=== PATIENT | male | born 1960 | race Caucasian/White ===

== ENCOUNTER 2022-10-17 11:48 | Outpatient (CLI) | payer MEDICAID, SELFPAY ==
[2022-10-17 14:16] LABS: Chloride* 106 mmol/L (96-114); Potassium* 5.2 mmol/L (3.6-5.1); Sodium* 138 mmol/L (135-149)
[2022-10-17 14:18] LABS: Cholesterol* 114 mg/dL (90-199)
[2022-10-17 14:19] LABS: Blood Urea Nitrogen* 14 mg/dL (7-30); Carbon Dioxide* 26 mmol/L (20-32); Creatinine* 0.8 mg/dL (0.5-1.5); Estimated Glomerular Filt Rate 101 ml/min; Glucose* 97 mg/dL (60-115)
[2022-10-17 14:20] LABS: Calcium* 9.1 mg/dL (8.4-10.6); HDL Cholesterol* 33 mg/dL (>=40); LDL Cholesterol Calculated 66 mg/dL (<100); Triglycerides* 73 mg/dL (40-149)
== END 2022-10-17 11:49 | disposition home or self-care (01) ==
PROVIDERS: PCP Family Medicine; Visit Provider Family Medicine
DX: Z00.00 Encounter for general adult medical examination without abnormal findings (principal); E78.5 Hyperlipidemia, unspecified; I10 Essential (primary) hypertension; Z12.5 Encounter for screening for malignant neoplasm of prostate
CPT/HCPCS: 80048; 80061; 84153

== ENCOUNTER 2023-10-23 10:16 | Outpatient (CLI) | payer MEDICAID, SELFPAY | END 2023-10-23 10:17 | disposition home or self-care (01) | PROVIDERS: PCP Family Medicine; Visit Provider Family Medicine | DX: E78.2 Mixed hyperlipidemia (principal); I10 Essential (primary) hypertension; Z12.5 Encounter for screening for malignant neoplasm of prostate; Z79.899 Other long term (current) drug therapy | CPT/HCPCS: 80048; 80061; 84153; 84460 ==

== ENCOUNTER 2024-10-24 14:18 | Outpatient (CLI) | payer MEDICAID, SELFPAY | END 2024-10-24 14:19 | disposition home or self-care (01) | PROVIDERS: PCP Family Medicine; Visit Provider Family Medicine | DX: E78.2 Mixed hyperlipidemia (principal); I10 Essential (primary) hypertension; Z12.5 Encounter for screening for malignant neoplasm of prostate | CPT/HCPCS: 80048; 80061; 84460; G0103 ==

== ENCOUNTER 2025-10-16 10:07 | Outpatient (CLI) | payer MEDICAID, SELFPAY ==
--- NOTE | 2025-10-16 11:00 | W.ANESCHARGE ---
Anesthesia Charges Start Date/Time Anesthesia Start Date: 10/16/25 Anesthesia Start Time: 10:39 Stop Date/Time Anesthesia Stop Date: 10/16/25 Anesthesia Stop Time: 11:00 Coding CPT Codes CPT Codes: BEBO LWR INTST NDSC NOS - [id number] ([id number]) P2 - PATIENT W/MILD SYST DISEASE, QK - OUTSIDE ENERGY SALES REPRESENTATIVES 2-4 CNCRNT ANES PROC, QX - PARK SERVICES SPECIALIST SVC W/ MD MED DIRECTION
--- NOTE | 2025-10-16 11:00 | P.ANES_ITS ---
Anesthesia Charges Start Date/Time Anesthesia Start Date: 10/16/25 Anesthesia Start Time: 10:39 Stop Date/Time Anesthesia Stop Date: 10/16/25 Anesthesia Stop Time: 11:00 Coding CPT Codes CPT Codes: BEBO LWR INTST NDSC NOS - [id number] ([id number]) P2 - PATIENT W/MILD SYST DISEASE, QK - DESTINATION IMAGINATION COORDINATOR 2-4 CNCRNT ANES PROC, QX - ENTERTAINMENT & MEDIA CORRESPONDENT SVC W/ MD MED DIRECTION
--- NOTE | 2025-10-16 11:27 | P.ANES_ITS ---
Anesthesia Charges Start Date/Time Anesthesia Start Date: 10/16/25 Anesthesia Start Time: 10:39 Stop Date/Time Anesthesia Stop Date: 10/16/25 Anesthesia Stop Time: 11:00 Coding CPT Codes CPT Codes: BEBO LWR INTST NDSC NOS - [id number] ([id number]) P2 - PATIENT W/MILD SYST DISEASE, QK - CERTIFIED WELDER 2-4 CNCRNT ANES PROC, QX - AUTOMOTIVE ENGINEERING TECHNICIAN SVC W/ MD MED DIRECTION
--- NOTE | 2025-10-16 11:27 | W.ANESCHARGE ---
Anesthesia Charges Start Date/Time Anesthesia Start Date: 10/16/25 Anesthesia Start Time: 10:39 Stop Date/Time Anesthesia Stop Date: 10/16/25 Anesthesia Stop Time: 11:00 Coding CPT Codes CPT Codes: BEBO LWR INTST NDSC NOS - [id number] ([id number]) P2 - PATIENT W/MILD SYST DISEASE, QK - SPINNING MACHINE OPERATOR 2-4 CNCRNT ANES PROC, QX - LUNCHROOM AIDE SVC W/ MD MED DIRECTION
== END 2025-10-16 10:08 | disposition home or self-care (01) ==
LOC: OP CLINIC 10:09
PROVIDERS: PCP Family Medicine; Visit Provider Internal Medicine
DX: Z12.11 Encounter for screening for malignant neoplasm of colon (principal); D12.5 Benign neoplasm of sigmoid colon; Z86.0100 Personal history of colon polyps, unspecified
CPT/HCPCS: 00811; 00812; 45380; J2704